=== PATIENT | female | born 1950 | race Caucasian/White ===

== ENCOUNTER → 2017-11-19 | Outpatient (CLI) | payer MEDICARE ==
[~2017-11-19] MED LIST: LEVO88TA42 PO; TRIA15OI20 TP
--- NOTE | 2017-11-20 11:43 | RADIOLOGY IMAGING REPORT ---
FACILITY: [facility] PATIENT NAME: DIOGENES CLARK : [id number] MR: [id number] V: [id number] EXAM DATE: [id number] ORDERING PHYSICIAN: BILL DAVISON TECHNOLOGIST: Nadia Lopez PROCEDURE:BILATERAL DIGITAL SCREENING MAMMOGRAM WITH CAD ASSISTED INTERPRETATION & 3D BREAST TOMOSYNTHYSIS COMPARISON:Prior mammograms: 11/13/16, 07/17/16, 06/22/15, 05/29/15, 04/27/14, 04/26/13. INDICATIONS:SCREENING FINDINGS: A small amount of fibroglandular tissue is seen throughout the breasts. Most of the parenchymal pattern has remained stable when allowing for difference in mammographic technique & patient positioning. There is a small nodular area in the medial inferior portion of the left breast that appears more prominent Therefore left breast Ultrasound is recommended for further evaluation. DIAGNOSTIC CATEGORY 0--INCOMPLETE: NEED ADDITIONAL IMAGING EVALUATION. RECOMMENDATIONS: ULTRASOUND: LEFT BREAST. IMPRESSION: BIRADS 0: Incomplete: need additional imaging evaluation. 1. Left breast Ultrasound recommended as described. Dictated by: Opal Gates M.D. on 11/19/2017 at 14:36 Transcribed by: IVET on 11/19/2017 at 14:45 Approved by: Opal Gates M.D. on 11/20/2017 at 11:42 [facility]
== END ==
LOC: MAMO 01:58
PROVIDERS: ATTEND Obstetrics & Gynecology
DX: Z12.31 Encounter for screening mammogram for malignant neoplasm of breast (principal); R92.8 Other abnormal and inconclusive findings on diagnostic imaging of breast
CPT/HCPCS: 77063; 77067

== ENCOUNTER → 2017-11-30 | Outpatient (CLI) | payer MEDICARE ==
--- NOTE | 2017-12-01 10:30 | RADIOLOGY IMAGING REPORT ---
FACILITY: [facility] [place] PATIENT NAME: DIOGENES CLARK : [id number] MR: [id number] V: [id number] EXAM DATE: [id number] ORDERING PHYSICIAN: BILL DAVISON TECHNOLOGIST: Tatum Ortiz PROCEDURE:LEFT BREAST ULTRASOUND COMPARISON:Prior mammogram from 11/19/17. INDICATIONS:FURTHER EVALUATION FINDINGS: In the 6 o'clock position of the left breast, there are several mildly prominent ducts measuring up to 2 mmHg in diameter. Also in the 6 o'clock position of the left breast just anterior to the chest wall is a well circumscribed ovoid hypoechoic nodule measuring 2.5 x 1.9 x 4.5 mm with no acoustic shadowing. This does not likely account for the mammographic findings. Therefore bilateral breast MR with and without contrast recommended. DIAGNOSTIC CATEGORY 0--INCOMPLETE: NEED ADDITIONAL IMAGING EVALUATION. RECOMMENDATIONS: BREAST MRI: BILATERAL BREASTS. IMPRESSION: BI-RADS 0: Bilateral breast MR with and without contrast recommended as described above. Dictated by: Opal Gates M.D. on 11/30/2017 at 17:15 Transcribed by: SALAS on 11/30/2017 at 23:02 Approved by: Opal Gates M.D. on 12/01/2017 at 10:29 [facility]
== END ==
LOC: US 01:00
PROVIDERS: ATTEND Obstetrics & Gynecology
DX: R92.8 Other abnormal and inconclusive findings on diagnostic imaging of breast (principal)

== ENCOUNTER 2017-12-04 15:22 | Outpatient (RCR) | payer MEDICARE ==
[2017-12-08] MEDS ORDERED: NS 0.9% 20 ML SDV 20 ML ONE (07:54)
[2017-12-08] MEDS ORDERED: GADOBENATE 529MG/1ML 15ML VIAL IVP ONE (07:54)
--- NOTE | 2017-12-08 14:49 | RADIOLOGY IMAGING REPORT ---
FACILITY: [facility] [place] PATIENT NAME: DIOGENES CLARK : [id number] MR: [id number] V: [id number] EXAM DATE: [id number] ORDERING PHYSICIAN: STEFAN ANTUNEZ TECHNOLOGIST: Maribel Georges PROCEDURE: BREAST BILATERAL W/O AND/OR WITH CONTRAST COMPARISON: Ultrasound 11/30/2017, Mammogram 11/19/2017, Mammograms dating back to 2012. INDICATIONS: CONFLICTING TRIPLE ASSESSMENT, PRE PROCEDURE TESTING HISTORY: 67 yr old female with incomplete triple assessment. Patient has an indeterminate 5mm nodule in the Left breast 7 o'clock position. Ultrasound was inconclusive. TECHNIQUE: Multiplanar multisequence MRI imaging of the breasts was performed in a dedicated breast coil in a 1.5 Lizz Siemens Magnet. Study was performed with & without contrast. Dynamic enhanced imaging of the both breasts was performed. Subtraction imaging & post processing using the Passado 3D workstation was performed. CONTRAST: Patient received 13cc of Multihance contrast for the study. FINDINGS: LEFT BREAST: There is a 5mm subcutaneous nodule in the left breast 7 o'clock position 5cm from the nipple which corresponds to the mammographic finding. This nodule is immediately subjacent to the skin & is increased in signal on T1 & T2 weighted images & demonstrates no contrast enhancement. Imaging findings suggest a possible sebaceous cyst. Recommend the patient return for a focused Ultrasound to evaluate this finding. Remainder of the Left breast is negative. There is no dominant enhancing mass or clumped or branched enhancement in the left. No pathologic Left axillary or Left internal mammary adenopathy. RIGHT BREAST: The Right breast is negative. There is no dominant mass or clumped or linear branching enhancement. No pathologic Right axillary or Right internal mammary adenopathy. DIAGNOSTIC CATEGORY 0--INCOMPLETE: NEED ADDITIONAL IMAGING EVALUATION. RECOMMENDATIONS: ULTRASOUND IF CLINICALLY INDICATED: LEFT BREAST. Please schedule a breast ultrasound if appropriate based on clinical data. CONCLUSION: BIRADS 4A: Incomplete need additional imaging evaluation. 1. SUSPICIOUS BIRADS 4A: The patient has a nonenhancing 5mm subcutaneous nodule in the Left breast 7 o'clock position, 5cm from the nipple which corresponds to the mammographic finding. The imaging features suggest a possible sebaceous cyst. Recommend the patient return for a focused Ultrasound to evaluate this nodule. 2. The Right breast is negative. Dictated by: Wilver Oliveros M.D. on 12/08/2017 at 9:48 Transcribed by: VISHAL on 12/08/2017 at 14:37 Approved by: Wilver Oliveros M.D. on 12/08/2017 at 14:48 [facility]
== END 2017-12-08 18:00 | disposition home or self-care (01) ==
LOC: MRI 15:22
PROVIDERS: ATTEND Student in an Organized Health Care Education/Training Program
DX: Z01.812 Encounter for preprocedural laboratory examination (principal); N63.20 Unspecified lump in the left breast, unspecified quadrant; R92.2 Inconclusive mammogram
CPT/HCPCS: 0159T; 36415; 82565; A9577; C8908; J7050; 77059

== ENCOUNTER → 2017-12-15 | Outpatient (CLI) | payer MEDICARE ==
--- NOTE | 2017-12-16 09:54 | RADIOLOGY IMAGING REPORT ---
FACILITY: [facility] [place] PATIENT NAME: DIOGENES CLARK : [id number] MR: [id number] V: [id number] EXAM DATE: ORDERING PHYSICIAN: STEFAN ANTUNEZ TECHNOLOGIST: Talat Siegel PROCEDURE:US LEFT BREAST COMPLETE COMPARISON:Is made to the breast MR dated 12/08/17, Prior left breast Ultrasound 11/30/17, Prior mammogram 11/19/17, Prior left breast Ultrasound 11/13/16, 07/31/16 and a prior left mammogram 11/13/16. INDICATIONS:LT BREAST CYST FURTHER EVALUATION FINDINGS: Mildly prominent ducts are seen in the 6 o'clock position of the left breast. There was no demonstration of sonographically detectible mass in the medial inferior left breast. A standoff pad was utilized for some of the images to evaluate the skin surface. Specifically a sebaceous cyst or mass could not be seen therefore a follow-up breast mammogram was recommended in 6 months and clinical findings warrant more immediate attention. DIAGNOSTIC CATEGORY 3--PROBABLY BENIGN FINDING. RECOMMENDATIONS: SIX MONTH FOLLOW-UP DIAGNOSTIC MAMMOGRAM: LEFT BREAST. IMPRESSION: BIRADS 3: Probably benign finding 1. A 6 month follow-up breast mammogram recommended. Dictated by: Opal Gates M.D. on 12/15/2017 at 15:52 Transcribed by: IVET on 12/16/2017 at 9:06 Approved by: Opal Gates M.D. on 12/16/2017 at 9:53 [facility]
== END ==
LOC: US 02:22
PROVIDERS: ATTEND Student in an Organized Health Care Education/Training Program
DX: R92.8 Other abnormal and inconclusive findings on diagnostic imaging of breast (principal)

== ENCOUNTER → 2018-06-11 | Outpatient (CLI) | payer MEDICARE ==
[~2018-06-11] MED LIST changes: +LEVO75TA73 PO
--- NOTE | 2018-06-15 09:05 | RADIOLOGY IMAGING REPORT ---
FACILITY: [facility] - [place] PATIENT NAME: DIOGENES CLARK : [id number] MR: [id number] V: [id number] EXAM DATE: [id number] ORDERING PHYSICIAN: BILL DAVISON TECHNOLOGIST: Nadia Lopez PROCEDURE:LEFT DIGITAL DIAGNOSTIC MAMMOGRAM WITH CAD ASSISTED INTERPRETATION & 3D TOMOSYNTHESIS COMPARISON:Prior mammograms dated 11/19/17, 11/13/16, 07/17/16, 06/22/15, 05/29/15 INDICATIONS:6 MO F/U FINDINGS: A small amount of fibroglandular tissue is seen throughout the breasts. Again noted is a small round well circumscribed nodular density in the medial inferior Left breast. This appears unchanged when compared to the prior mammogram from 11/19/17, as well as on the prior mammograms dating back to 05/29/15 although it appears minimally more prominent than 2015. This also appeared well circumscribed on the prior MRI. DIAGNOSTIC CATEGORY 3--PROBABLY BENIGN FINDING. RECOMMENDATIONS: SIX MONTH FOLLOW-UP DIAGNOSTIC MAMMOGRAM: BILATERAL BREASTS. IMPRESSION: BIRADS 3: Probably benign finding. A 6 month follow up bilateral mammogram is recommended at which time the patient will be due for her annual mammogram. Dictated by: Opal Gates M.D. on 06/11/2018 at 15:18 Transcribed by: VISHAL on 06/14/2018 at 8:18 Approved by: Opal Gates M.D. on 06/15/2018 at 9:04 [facility]
--- NOTE | 2018-06-15 09:05 | RADIOLOGY IMAGING REPORT ---
FACILITY: [facility] [place] PATIENT NAME: DIOGENES CLARK : [id number] MR: [id number] V: [id number] EXAM DATE: [id number] ORDERING PHYSICIAN: BILL DAVISON TECHNOLOGIST: Lucita Ortiz RDMS PROCEDURE:US LEFT BREAST COMPARISON:None. INDICATIONS:6 MO F/U FINDINGS: Numerous images were obtained of the Left breast along the inferior aspect from the 3-9 o'clock position. I personally scanned the patient in addition to the technologist scanning. Mildly prominent dilated ducts were identified in the 5 o'clock, 4 o'clock position. The small well circumscribed nodular density seen in the medial inferior Left breast could not be identified sonographically. This did appear stable on today's mammogram. DIAGNOSTIC CATEGORY 2--BENIGN FINDING. RECOMMENDATIONS: ROUTINE MAMMOGRAM AND CLINICAL EVALUATION. IMPRESSION: BIRADS 2: Benign finding. No significant abnormality is seen. Dictated by: Opal Gates M.D. on 06/11/2018 at 15:10 Transcribed by: VISHAL on 06/14/2018 at 8:21 Approved by: Opal Gates M.D. on 06/15/2018 at 9:04 [facility]
== END ==
LOC: MAMO 00:31
PROVIDERS: ATTEND Obstetrics & Gynecology
DX: N63.24 Unspecified lump in the left breast, lower inner quadrant (principal); N60.42 Mammary duct ectasia of left breast
CPT/HCPCS: 77061; 77065

== ENCOUNTER → 2019-02-03 | Outpatient (CLI) | payer MEDICARE ==
[~2019-02-03] MED LIST changes: +CHOL100052 PO; +FLU180SY11 IM; +PNEU0.5D3 IM; +ROSU10TA5 PO
--- NOTE | 2019-02-03 10:03 | RADIOLOGY IMAGING REPORT ---
FACILITY: [facility] [place] PATIENT NAME: Elda Crockett : 1950 MR: [id number] V: [id number] EXAM DATE: ORDERING PHYSICIAN: BILL DAVISON TECHNOLOGIST: Location: Patient: Elda Crockett : 1950 Visit/Account:[id number] Date of Sevice: 02/03/2019 DEXA Scan Clinical history: Postmenopausal screening. Comparison: DEXA scan from 02/29/2008. LUMBAR SPINE: The bone mineral density (BMD) measured from L1-L4 correlates with a Z-score of 0 and a T-score of -1 .7 which is osteopenia as defined by the World Health Organization. The corresponding risk of fractu re in the lumbar spine is 3-4 times increased compared with a young adult reference population. This value has decrease by 3.6 % since the prior study. More than 5% change is considered significant. HIP: Bone mineral density (BMD) measured in the LEFT total hip region correlates with a Z-score -1.2 and a T-score of -2.7 which is osteoporosis as defined by the World Health Organization. The correspondin g risk of fracture in the hip is 6-8 times increased compared to a young adult reference population. This value has decreased by 0.7 % since the prior study. More than 5% change is considered significa nt. T score left femoral neck -2.8 Bone mineral density (BMD) measured in the Femoral Neck region measures 0.647 g/cm?. IMPRESSION: 1. 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 There has been 3.6% decrease in the bone mineral density since the prev ious exam. 2. Left Total Hip: Osteoporosis. There has been 0.7% decrease in the bone mineral density since the previous exam. 3. Femoral Neck: Bone Mineral Density is 0.647 g/cm? The next DEXA scan of this patient should include the following sites: L1-L4 and the left hip. FRAX? WHO Fracture Risk Assessment Tool link: <http://www.shef.ac.uk/FRAX/tool.jsp?locationValue=9> PLEASE NOTE: 1) The World Health Organization defines low BMD as follows: T-score Normal > -1 Osteopenia < -1 and > -2.5 Osteoporosis < -2.5 without fractures Established osteoporosis < -2.5 with fractures 2) In general, you may wish to consider: Diagnosis Treatment Follow-up DEXA Normal BMD Prevention 2-3 years Osteopenia Prevention/therapy 1-2 years Osteoporosis Therapy Yearly 3) Fracture risk estimated from the T-score is more accurate for vertebral fractures (often spontane ous) than for hip fractures. Report Dictated By: Opal Gates MD at 02/03/2019 9:56 AM Report E-Signed By: Opal Gates MD at 02/03/2019 9:58 AM WSN:[email or web address]
--- NOTE | 2019-02-04 09:13 | RADIOLOGY IMAGING REPORT ---
FACILITY: [facility] PATIENT NAME: DIOGENES CLARK : [id number] MR: [id number] V: [id number] EXAM DATE: ORDERING PHYSICIAN: BILL DAVISON TECHNOLOGIST: Roslyn Membreno PROCEDURE:BILATERAL DIAGNOSTIC DIGITAL MAMMOGRAM WITH CAD ASSISTED INTERPRETATION & 3D TOMOSYNTHESIS COMPARISON:Prior mammograms dated 06/11/18, 11/19/17, 11/13/16, 07/17/16, 06/22/15 INDICATIONS:SIX MONTH FOLLOW UP FINDINGS: There are scattered areas of fibroglandular density throughout the breasts. The parenchymal pattern has remained stable when allowing for difference in mammographic technique & patient positioning. DIAGNOSTIC CATEGORY 1--NEGATIVE. RECOMMENDATIONS: ROUTINE MAMMOGRAM AND CLINICAL EVALUATION. IMPRESSION: BIRADS 1: Negative. No significant abnormality is seen. Dictated by: Opal Gates M.D. on 02/03/2019 at 16:00 Transcribed by: VISHAL on 02/04/2019 at 8:26 Approved by: Opal Gates M.D. on 02/04/2019 at 9:12 [facility]
== END ==
LOC: MAMO 00:47
PROVIDERS: ATTEND Obstetrics & Gynecology
DX: Z78.0 Asymptomatic menopausal state (principal); R92.8 Other abnormal and inconclusive findings on diagnostic imaging of breast
CPT/HCPCS: 77062; 77066; 77080

== ENCOUNTER → 2019-03-15 | Outpatient (CLI) | payer MEDICARE | LOC: LAB 10:58 | PROVIDERS: ATTEND Emergency Medicine | DX: R79.89 Other specified abnormal findings of blood chemistry (principal); G62.9 Polyneuropathy, unspecified; M81.0 Age-related osteoporosis without current pathological fracture | CPT/HCPCS: 36415; 81001; 82310; 82374; 82435; 82565; 82607; 82947; 83970; 84132; 84295; 84520 ==

== ENCOUNTER → 2019-04-13 | Outpatient (CLI) | payer MEDICARE ==
[~2019-04-13] MED LIST changes: +ROSU10TA PO
== END ==
LOC: LAB 06:48
PROVIDERS: ATTEND Emergency Medicine
DX: E78.5 Hyperlipidemia, unspecified (principal)
CPT/HCPCS: 36415; 82465; 83718; 84478